=== PATIENT | female | born 1990 | race Caucasian/White ===

== ENCOUNTER 2018-03-18 03:32 | Emergency (ER) | payer OTHER, BC ==
[2018-03-18 04:21] LABS: URINE BLOOD (Dip) POC Trace-intact (NEGATIVE); URINE GLUCOSE (Dip) POC Negative (NEGATIVE); URINE KETONES (Dip) POC 1+ (NEGATIVE); URINE LEUKOCYTE EST (Dip) POC Trace (NEGATIVE); URINE NITRITE (Dip) POC Negative (NEGATIVE); URINE TOTAL PROTEIN POC 1+ (NEGATIVE)
[2018-03-18 04:21] LABS: URINE PH (Dip) POC 7.5 (5.0-8.5)
[2018-03-18] MEDS: ALBUTEROL HFA 8 GM INHALER INH (04:53)
[2018-03-18] MEDS: ONDANSETRON 4 MG INJ IV (05:02)
[2018-03-18] MEDS: SOD CHLORIDE 0.9% 1,000 ML IV (05:03)
[2018-03-18] MEDS: DIPHENHYDRAMINE 50 MG INJ IV (05:03)
[2018-03-18] MEDS: KETOROLAC 15 MG INJ IV (05:03)
[2018-03-18] MEDS: ACETAMINOPHEN 325 MG TAB PO (05:10)
== END 2018-03-18 05:43 | disposition home or self-care (01) ==
LOC: FTE 03:32
DX: J02.9 Acute pharyngitis, unspecified (principal)
CPT/HCPCS: 81003; 81025; 94640; 96374; 96375; 99284-25